=== PATIENT | female | born 1945 | race Caucasian/White ===

== ENCOUNTER → 2016-07-02 | Outpatient (CLI) | payer MEDICARE, BC ==
[~2016-07-02] MED LIST: ASCO-296 PO; CEPH-137 PO; DONE10TA15 PO; MULT-806 PO; SERT-77; VITA100C20 PO; [UNRECOGNIZED DRUG - CODE] PO
== END ==
LOC: WC.BC 09:32
PROVIDERS: ATTEND Family Medicine
DX: R92.8 Other abnormal and inconclusive findings on diagnostic imaging of breast (principal); R92.2 Inconclusive mammogram; N63 Unspecified lump in breast
CPT/HCPCS: 76642; G0204; G0279